=== PATIENT | male | born 1950 | race Caucasian/White ===

== ENCOUNTER 2023-01-10 20:10 | Emergency (ER) | payer MEDICARE, OTHER ==
[~2023-01-10] VITALS: Ht 175.3 cm; Wt 74.4 kg
[~2023-01-10 20:10] MED LIST: TAMS-3 PO
[2023-01-10] MEDS ORDERED: KETOROLAC TROMETHAMINE 60 MG INJ IM ONE ×2 (20:41→20:45)
[2023-01-10] MEDS ORDERED: ACET1TAB23 PO (21:22)
[2023-01-10] MEDS ORDERED: NAPR-1164 PO (21:22)
[2023-01-10 21:55] VITALS: BP 135/77; O2SAT 98
== END 2023-01-10 21:55 | disposition home or self-care (01) ==
LOC: ER 20:17
DX: M12.561 Traumatic arthropathy, right knee (principal); Z79.899 Other long term (current) drug therapy
CPT/HCPCS: 99283; 73564; 96372; J1885; A4663